=== PATIENT | female | born 1975 | race Two or more races ===

== ENCOUNTER 2021-03-25 12:21 | Inpatient (IN) | payer MEDICAID ==
[~2021-03-25] VITALS: Ht 157.5 cm; Wt 85.5 kg
[2021-03-25] MEDS ORDERED: MORPHINE SULFATE 4 MG/ML SYR/VIAL IV ONE (12:30)
[2021-03-25] MEDS ORDERED: ONDANSETRON HCL 4 MG/2 ML VIAL IV ONE (12:30)
[2021-03-25 13:05] LABS: Urine Bacteria NONE SEEN /hpf (None Seen); Urine Blood TRACE /uL (Negative); Urine Mucus FEW (None Seen); Urine Specific Gravity 1.018 (1.001-1.035); Urine WBC 4 /hpf (0 - 5)
[2021-03-25 13:12] LABS: Basophils # (auto) 0 10 ^3/uL (0-0.2); Basophils % (auto) 0.5 % (0.0-2.0); Eosinophils # (auto) 0 10 ^3/uL (0-0.8); Eosinophils % (auto) 0.5 % (0.0-7.0); Hematocrit 38.5 % (36.0-46.0); Hemoglobin 13.2 g/dL (12.2-16.2); Lymphocytes # (auto) 1.9 10 ^3/uL (0.4-5.4); Lymphocytes % (auto) 23.8 % (10.0-50.0); Mean Corpuscular Hemoglobin 29.9 pg (28.0-32.0); Mean Corpuscular Hgb Conc. 34.2 g/dL (32.0-36.0); Mean Corpuscular Volume 87.5 fL (80.0-100.0); Monocytes # (auto) 0.5 10 ^3/uL (0-1.3); Monocytes % (auto) 5.8 % (0.0-12.0); Neutrophils # (auto) 5.4 10 ^3/uL (1.6-8.6); Neutrophils % (auto) 69.4 % (37.0-80.0); Nucleated Red Blood Cells % 0.1 %; Platelet Count (auto) 181 10^3/uL (140-450); Red Cell Distribution Width 13.6 % (11.8-14.3); White Blood Cell 7.8 10^3/uL (4.4-10.8)
[2021-03-25 13:33] LABS: Albumin 3.7 g/dL (3.4-5.0); BUN/Creatinine Ratio 13.7; Calcium 8.7 mg/dL (8.5-10.1); Potassium 3.3 mmol/L (3.5-5.1)
[2021-03-25 13:36] LABS: Bilirubin, Total 0.3 mg/dL (0.2-1.0); Total Protein 7.2 g/dL (6.4-8.2)
[2021-03-25] MEDS ORDERED: ALUM & MAG HYDROX-SIMETH LIQ(MAALOX) 30 ML PO ONE (14:30)
[2021-03-25] MEDS ORDERED: MORPHINE SULFATE 4 MG/ML SYR/VIAL IV PRN (14:30)
[2021-03-25] MEDS ORDERED: NITROGLYCERIN 0.4 MG SL TAB SL PRN (14:30)
[2021-03-25] MEDS ORDERED: ONDANSETRON HCL 4 MG/2 ML VIAL IV PRN (14:30)
[2021-03-25] MEDS ORDERED: MORPHINE SULF INJ 2 MG/ML SYRINGE 1ML IV PRN (14:30)
[2021-03-25] MEDS ORDERED: DONNATAL 5ml ORAL Elix (BELLADONNA ALK-PHENOBARB) PO ONE (14:45)
[2021-03-25] MEDS ORDERED: LIDOCAINE VISCOUS 2% 15ML UD PO ONE (14:45)
[2021-03-25] MEDS: SUCRALFATE 1 GM/10 ML ORAL SUSP PO SCH ×2 (15:35→21:58)
[2021-03-25] MEDS: PANTOPRAZOLE 40 MG/10 ML VIAL INJ IV SCH ×2 (15:35→21:57)
[2021-03-25] MEDS: DICYCLOMINE HCL 10 MG CAP PO SCH ×2 (15:35→21:57)
[2021-03-25] MEDS ORDERED: ALBU108A5 IN (18:04)
[2021-03-25 18:40] LABS: INR 1.01 (0.9-1.15)
[2021-03-25 22:00] VITALS: BP 92/62
[2021-03-26 05:00] VITALS: BP 118/63
[2021-03-26] MEDS: SUCRALFATE 1 GM/10 ML ORAL SUSP PO SCH ×2 (06:00→14:00)
[2021-03-26] MEDS: DICYCLOMINE HCL 10 MG CAP PO SCH ×2 (06:00→14:00)
[2021-03-26 08:31] VITALS: BP 114/71
[2021-03-26] MEDS ORDERED: diphenhdrAMINE HCL 50 MG/1 ML VL ONE (08:58)
[2021-03-26] MEDS ORDERED: LIDOCAINE VISCOUS 2% 15ML UD ONE (08:58)
[2021-03-26] MEDS ORDERED: SODIUM CHLORIDE LOCK 10 ML ONE (08:59)
[2021-03-26] MEDS: PANTOPRAZOLE 40 MG/10 ML VIAL INJ IV SCH (09:16)
[2021-03-26] MEDS: fentaNYL CITRATE 100 MCG/2 ML VL ONE ×2 (11:38→11:41)
[2021-03-26] MEDS: MIDAZOLAM HCL 5 MG/ML-1ML VIAL ONE ×2 (11:38→11:41)
[2021-03-26 12:49] VITALS: BP 113/71
[2021-03-26] MEDS ORDERED: GADOTERATE MEG 10 MMOL/20ml INJ (0.5MMOL/ml) IV ONE (13:22)
[2021-03-26] MEDS ORDERED: POTASSIUM CHL 20 Meq TABLET PO ONE (14:15)
[2021-03-26] MEDS ORDERED: DICY10CA PO (14:28)
[2021-03-26] MEDS ORDERED: METR500T PO (14:28)
[2021-03-26] MEDS ORDERED: PANT40TA2 PO (14:28)
[2021-03-26 15:15] VITALS: BP 120/65
[2021-03-27] MEDS ORDERED: NICOTINE 21MG/24 HR TOPICAL PATCH TD SCH (10:00)
== END 2021-03-26 16:01 | disposition home or self-care (01) | DRG 254 ==
LOC: ER 12:21 → OVERFLOW 14:17 → EAST 17:25
PROVIDERS: ADMIT Hospitalist; ATTEND Hospitalist
PROC: 0DJ08ZZ Inspection of Upper Intestinal Tract, Via Natural or Artificial Opening Endoscopic (ICD-10-PCS; principal; 2021-03-26 11:32)
DX: K63.89 Other specified diseases of intestine (principal); K76.0 Fatty (change of) liver, not elsewhere classified; D18.03 Hemangioma of intra-abdominal structures; E66.9 Obesity, unspecified; Z20.822 Contact with and (suspected) exposure to COVID-19; F17.210 Nicotine dependence, cigarettes, uncomplicated; Z80.9 Family history of malignant neoplasm, unspecified; Z90.49 Acquired absence of other specified parts of digestive tract; Z68.32 Body mass index [BMI] 32.0-32.9, adult; E87.6 Hypokalemia
CPT/HCPCS: 36415; 43235; 74176; 74183; 80053; 81001; 81025; 82150; 83690; 84702; 85025; 85610; 87426; 96374; 96375; C9113; G0378; J2250; J2405